=== PATIENT | female | born 1975 | race Caucasian/White ===

== ENCOUNTER → 2016-10-11 | Outpatient (CLI) | payer BC ==
[2016-10-11 13:31] LABS: CHLORIDE,CL 106 mmol/L (98-110); SODIUM,NA 138 mmol/L (136-146)
== END ==
LOC: MW.LAB 12:36
PROVIDERS: ATTEND Nurse Practitioner Family
DX: N95.1 Menopausal and female climacteric states (principal); E34.9 Endocrine disorder, unspecified; Z00.00 Encounter for general adult medical examination without abnormal findings
CPT/HCPCS: 36415; 80053; 80061; 82306; 82670; 83001; 84403; 84443; 85025

== ENCOUNTER → 2016-10-23 | Outpatient (CLI) | payer BC | LOC: MW.LAB 11:45 | PROVIDERS: ATTEND Nurse Practitioner Family | DX: E34.9 Endocrine disorder, unspecified (principal); R89.9 Unspecified abnormal finding in specimens from other organs, systems and tissues | CPT/HCPCS: 36415; 84439; 84443; 85025 ==

== ENCOUNTER → 2016-11-09 | Outpatient (CLI) | payer OTHER, BC ==
--- NOTE | 2016-11-09 14:56 | MR ---
EXAMINATION: MRI of the right shoulder HISTORY: Postprocedural state COMPARISON: 04/11/2016 TECHNIQUE: Multiplanar and multisequence images obtained of the right shoulder without contrast. FINDINGS: Postsurgical changes are noted within the humeral head secondary to previous rotator cuff repair. There is a type II acromion. There is a small amount of subdeltoid and subacromial fluid. Th ere is a full-thickness tear of the supraspinatus tendon at the footplate with mild retraction of th e anterior aspect of the tendon. The infraspinatus and teres minor tendons appear intact. The long h ead biceps tendon is present within the bicipital groove. The subscapularis tendon appears normal. T here is mild edema within the humeral head. No significant joint effusion. Inferior glenohumeral lig ament is intact. IMPRESSION: 1. Full-thickness tear of the supraspinatus tendon anteriorly at the footplate with mild retraction. 2. Postsurgical changes noted within the humeral head from previous rotator cuff fixation. 3. Mild bone marrow edema underlying the footplate. 4. Subacromial and subdeltoid fluid without a significant joint effusion.
== END ==
LOC: MW.MRI 09:16
PROVIDERS: ATTEND Orthopaedic Surgery
DX: Z98.890 Other specified postprocedural states (principal); M75.121 Complete rotator cuff tear or rupture of right shoulder, not specified as traumatic; R60.9 Edema, unspecified
CPT/HCPCS: 73221-26-RT; 73221-RT

== ENCOUNTER 2016-12-08 12:12 | Emergency (ER) | payer BC, OTHER ==
[2016-12-08] MEDS ORDERED: Albuterol/Ipratropium 3.0-0.5 MG/3 ML Neb Soln NEB ONE (12:16)
--- NOTE | 2016-12-08 12:21 | EDM.PDOC ---
ED HISTORY OF PRESENT ILLNESS - General Chief Complaint: Respiratory Problem Stated Complaint: CHEST HURTING Time Seen by Provider: 12/08/16 12:19 - History of Present Illness INITIAL COMMENTS - FREE TEXT/NARRATIVE: HISTORY AND PHYSICAL: History of present illness: Patient 41-year-old white female presents with concern of cough congestion and cold symptoms for 7-10 days she is a smoker she denies fever chills nausea vomiting chest pain or other concern Review of systems: As per history of present illness and below otherwise all systems reviewed and negative. Past medical history: As per history of present illness and as reviewed below otherwise noncontributory. Surgical history: As per history of present illness and as reviewed below otherwise noncontributory. Social history: No reported history of drug or alcohol abuse. Family history: As per history of present illness and as reviewed below otherwise noncontributory. Physical exam: HEENT: Atraumatic, normocephalic, pupils reactive, negative for conjunctival pallor or scleral icterus, mucous membranes moist, throat clear, neck supple, nontender, trachea midline. Lungs: Slightly diminished and coarse bilaterally , breath sounds equal bilaterally, chest nontender. Heart: S1S2, regular, negative for clicks, rubs, or JVD. Abdomen: Soft, nondistended, nontender. Negative for masses or hepatosplenomegaly. Negative for costovertebral tenderness. Pelvis: Stable nontender. Genitourinary: Deferred. Rectal: Deferred. Extremities: Atraumatic, negative for cords or calf pain. Neurovascular unremarkable. Neuro: Awake, alert, oriented. Cranial nerves II through XII unremarkable. Cerebellum unremarkable. Motor and sensory unremarkable throughout. Exam nonfocal. Diagnostics: CBC CMP influenza screen chest x-ray Therapeutics: Albuterol ipratropium nebulizer Impression: #1 pneumonitis Definitive disposition and diagnosis as appropriate pending reevaluation and review of above. 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: hysterectomy and breast reduction Musculoskeletal History: Reports: Other (see below) Other Musculoskeletal History: torn rotator cuff, bursitis Neurological History: Reports: None Psychiatric History: Reports: None Endocrine/Metabolic History: Reports: None Hematologic History: Reports: None Immunologic History: Reports: None Oncologic (Cancer) History: Reports: None Dermatologic History: Reports: Psoriasis - Past Surgical History Female Surgical History: Reports: Breast reduction, Hysterectomy, Oophorectomy Musculoskeletal Surgical History: Reports: Arthroscopic procedure, Other (see below) Other Musculoskeletal Surgeries/Procedures:: surgery on left shoulder x 4 - labral repair, cleaning scar tissue. RTC repair on right shoulder Social & Family History - Family History Family Medical History: Noncontributory - Tobacco Use Smoking Status *Q: Current Every Day Smoker Years of Tobacco use: 15 Packs/Tins Daily: 1 Used Tobacco, but Quit: No Second Hand Smoke Exposure: No - Caffeine Use Caffeine Use: Reports: Coffee - Alcohol Use Days Per Week of Alcohol Use: 0 - Recreational Drug Use Recreational Drug Use: No Drug Use in Last 12 Months: No ED ROS GENERAL - Review of Systems Review Of Systems: ROS reveals no pertinent complaints other than HPI. ED EXAM, GENERAL - Physical Exam Exam: See Below (See dictated) Course - Vital Signs Last Recorded V/S: Last Vital Signs Temp 36.6 C 12/08/16 12:19 Pulse 95 12/08/16 12:19 Resp 20 12/08/16 12:19 BP 115/70 12/08/16 12:19 Pulse Ox 97 12/08/16 12:19 - Orders/Labs/Meds Orders: Active Orders 24 hr Category Date Time Status RT Aerosol Therapy [RC] ASDIRECTED Care 12/08/16 12:16 Active Chest 2V [CR] Stat Exams 12/08/16 12:19 Taken Labs: Laboratory Tests 12/08/16 12/08/16 Range/Units 12:29 12:29 WBC 12.00 H (4.0-11.0) K/uL RBC 4.99 (4.30-5.90) M/uL Hgb 16.0 (12.0-16.0) g/dL Hct 47.3 H (36.0-46.0) % MCV 94.8 (80.0-98.0) fL MCH 32.1 H (27.0-32.0) pg MCHC 33.8 (31.0-37.0) g/dL RDW Std Deviation 47.0 (28.0-62.0) fl RDW Coeff of Jailyn 14 (11.0-15.0) % Plt Count 255 (150-400) K/uL MPV 10.00 (7.40-12.00) fL Neut % (Auto) 69.5 (48.0-80.0) % Lymph % (Auto) 19.4 (16.0-40.0) % Cavalier % (Auto) 9.3 (0.0-15.0) % Eos % (Auto) 1.5 (0.0-7.0) % Baso % (Auto) 0.3 (0.0-1.5) % Neut # (Auto) 8.3 H (1.4-5.7) K/uL Lymph # (Auto) 2.3 (0.6-2.4) K/uL Cavalier # (Auto) 1.1 H (0.0-0.8) K/uL Eos # (Auto) 0.2 (0.0-0.7) K/uL Baso # (Auto) 0.0 (0.0-0.1) K/uL Nucleated RBC % 0.0 /100WBC Nucleated RBCs # 0 K/uL Sodium 140 (136-146) mmol/L Potassium 4.3 (3.5-5.1) mmol/L Chloride 106 (98-110) mmol/L Carbon Dioxide 26 (21-31) mmol/L BUN 10 (6.0-23.0) mg/dL Creatinine 0.8 (0.6-1.5) mg/dL Est Cr Clr Drug Dosing 73.19 mL/min Estimated GFR (MDRD) > 60.0 ml/min Glucose 78 (60-110) mg/dL Calcium 9.1 (8.8-10.8) mg/dL Total Bilirubin 0.3 (0.1-1.5) mg/dL AST 20 (5-40) IU/L ALT 15 (8-54) IU/L Alkaline Phosphatase 73 (40-150) Total Protein 7.3 (6.0-8.0) g/dL Albumin 4.1 (3.5-5.0) g/dL Globulin 3.2 (2.0-3.5) g/dL Albumin/Globulin Ratio 1.3 (1.3-2.8) Meds: Medications Discontinued Medications Generic Name Dose Route Start Last Admin Trade Name Carly PRN Reason Stop Dose Admin Albuterol/Ipratropium 3 ml 12/08/16 12:16 12/08/16 12:23 Duoneb 3.0-0.5 Mg/3 Ml NEB 12/08/16 12:17 3 ml ONETIME ONE Administration Departure - Departure Time of Disposition: 13:18 Disposition: Home, Self-Care 01 Condition: good Clinical Impression: Pneumonitis Forms: ED Department Discharge Additional Instructions: The following information is given to patients seen in the emergency department who are being discharged to home. This information is to outline your options for follow-up care. We provide all patients seen in our emergency department with a follow-up referral. The need for follow-up, as well as the timing and circumstances, are variable depending upon the specifics of your emergency department visit. If you don't have a primary care physician on staff, we will provide you with a referral. We always advise you to contact your personal physician following an emergency department visit to inform them of the circumstance of the visit and for follow-up with them and/or the need for any referrals to a consulting specialist. The emergency department will also refer you to a specialist when appropriate. This referral assures that you have the opportunity for followup care with a specialist. All of these measure are taken in an effort to provide you with optimal care, which includes your followup. Under all circumstances we always encourage you to contact your private physician who remains a resource for coordinating your care. When calling for followup care, please make the office aware that this follow-up is from your recent emergency room visit. If for any reason you are refused follow-up, please contact the [facility] emergency department at and asked to speak to the emergency department charge nurse. azithromycin albuterol as prescribed stop smoking followup primary medical doctor one to 2 days return as needed discussed - My Orders Last 24 Hours: My Active Orders 12/08/16 12:16 RT Aerosol Therapy [RC] ASDIRECTED 12/08/16 12:19 Chest 2V [CR] Stat - Assessment/Plan Last 24 Hours: My Active Orders 12/08/16 12:16 RT Aerosol Therapy [RC] ASDIRECTED 12/08/16 12:19 Chest 2V [CR] Stat
[2016-12-08 12:51] LABS: CHLORIDE,CL 106 mmol/L (98-110); SODIUM,NA 140 mmol/L (136-146)
[2016-12-08 13:47] VITALS: BP 112/68
--- NOTE | 2016-12-09 18:13 | CR ---
EXAM DATE: 12/08/16 PATIENT'S AGE: 41 Patient: SHI MORALES Facility: [place], [place] Site . Site : [id number] Study: XRay Chest [id number]/29/2017 12:51:44 PM Ordering Physician: Daysi Zelaya Final Report: INDICATION: Cough x9 days. Technique: Two view chest. Comparison: Two-view chest 06/21/2016. Findings: The heart and mediastinum are normal in size and configuration. The pulmonary vessels are normal. The lungs are clear. No pleural fluid. Postoperative changes of the left shoulder. No acute bony abnormalities. Impression: Stable chest with no evidence of acute disease. Dictated by Reji Flanagan MD @ Dec 08 2016 1:04PM (Electronic Signature) Report Signed by Proxy. [facility]
== END 2016-12-08 13:30 | disposition home or self-care (01) ==
LOC: MW.ED 12:12
DX: J18.9 Pneumonia, unspecified organism (principal)
CPT/HCPCS: 36415; 71020; 71020-26; 80053; 85025; 87804; 94664; 99283; 99285

== ENCOUNTER 2017-08-14 06:41 | Day surgery (SDC) | payer OTHER, BC ==
[2017-08-14] MEDS: Lactated Ringers 1,000 ML IV SCH ×2 (07:15→07:46)
--- NOTE | 2017-08-14 07:19 | PCM.PREANE ---
Preanesthetic Assessment - Anesthesia/Transfusion/Family Hx Anesthesia History: Prior Anesthesia Reaction Other Type of Anesthesia Reaction Comment: "Have a hard time breathing and my heart wants to stop", perioperative hypn Transfusion History: No Prior Transfusion(s) - Review of Systems General: No Symptoms Pulmonary: No Symptoms Cardiovascular: No Symptoms Gastrointestinal: No Symptoms Neurological: No Symptoms Other: Reports: None - Physical Assessment NPO Status Date: 08/13/17 Height: 1.6 m Weight: 77.111 kg ASA Class: 2 Mental Status: Alert & Oriented x3 Airway Class: Mallampati = 2 Dentition: Reports: Normal Dentition Lungs: Clear to Auscultation, Normal Respiratory Effort Cardiovascular: Regular Rate, Regular Rhythm - Allergies Allergies/Adverse Reactions: Allergies Allergy/AdvReac Type Severity Reaction Status Date / Time morphine AdvReac Vomiting Verified 12/08/16 12:23 anesthesia Allergy Hypotension Uncoded 12/08/16 12:23 - Anesthesia Plan Pre-Op Medication Ordered: None - Acknowledgements Anesthesia Type Planned: General Anesthesia Pt an Appropriate Candidate for the Planned Anesthesia: Yes Alternatives and Risks of Anesthesia Discussed w Pt/Guardian: Yes Pt/Guardian Understands and Agrees with Anesthesia Plan: Yes Additional Comments: pt choses no interscalene block. 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 OB/BYN History: vaginal hysterectomy, breast reduction and laparoscopy with corona S&O Musculoskeletal History: Neurological History: Reports: Migraines Psychiatric History: Reports: None Endocrine/Metabolic History: Reports: None Hematologic History: Reports: None Immunologic History: Reports: None Oncologic (Cancer) History: Reports: None Dermatologic History: Reports: Psoriasis - Past Surgical History Head Surgeries/Procedures: Reports: None Female Surgical History: Reports: Breast Reduction, Hysterectomy, Salpingo- Oophorectomy Musculoskeletal Surgical History: Reports: Arthroscopic Procedure, Shoulder Surgery, Other (See Below) Other Musculoskeletal Surgeries/Procedures:: surgery on left shoulder x 4 - labral repair, cleaning scar tissue. RTC repair on right shoulder - SUBSTANCE USE Smoking Status *Q: Current Every Day Smoker Tobacco Use Within Last Twelve Months: Cigarettes Second Hand Smoke Exposure: No Days Per Week of Alcohol Use: 0 Recreational Drug Use History: No - HOME MEDS Home Medications: Home Meds Albuterol [Ventolin HFA] 1 - 2 puff INH ASDIRECTED PRN 08/08/17 [History] Cyclobenzaprine HCl 10 mg PO ASDIRECTED PRN 08/08/17 [History] Diclofenac Sodium [Voltaren] 75 mg PO BID 08/08/17 [History] Triamcinolone Acetonide [Triamcinolone Acetonide 0.1% Crm] 1 applic TOP ASDIRECTED PRN 08/08/17 [History] - CURRENT (IN HOUSE) MEDS Current Meds: Current Medications Hydrocodone Bitart/Acetaminophen ([place] 325-10 Mg) 1 - 2 tab PO Q4H PRN PRN Reason: Pain Cefazolin Sodium/Dextrose 1 gm (/ Premix) 50 mls @ 100 mls/hr IV ONCALL SHANNAN Lactated Ringer's (Ringers, Lactated) 1,000 mls @ 100 mls/hr IV ASDIRECTED SHANNAN Ketorolac Tromethamine (Toradol) 10 mg PO Q6H PRN PRN Reason: Pain Stop: 08/19/17 08:01
[2017-08-14] MEDS ORDERED: Midazolam 1 MG/ML 2 ML SDV ONE (07:24)
[2017-08-14] MEDS ORDERED: fentaNYL 250 MCG/5 ML SDV ONE (07:24)
[2017-08-14] MEDS ORDERED: Propofol 200 MG/20 ML SDV ONE ×2 (07:24→08:58)
[2017-08-14] MEDS ORDERED: Lidocaine 2% 5 ML SDV ONE (07:24)
[2017-08-14] MEDS ORDERED: Ondansetron 4 MG/2 ML SDV ONE ×2 (07:25→08:37)
[2017-08-14] MEDS ORDERED: Succinylcholine/Normal Saline 200 MG/10 ML Syringe ONE (07:25)
[2017-08-14] MEDS ORDERED: Ketorolac 30 MG/ML SDV ONE (07:25)
[2017-08-14] MEDS ORDERED: ePHEDrine 50 MG/ML SDV ONE (07:33)
[2017-08-14] MEDS ORDERED: Ketorolac 10 MG Tab PO PRN (08:00)
[2017-08-14] MEDS ORDERED: Acetaminophen/HYDROcodone 325-10 MG Tab PO PRN (08:00)
[2017-08-14] MEDS ORDERED: ceFAZolin 1 GM in Premix Bag 1 BAG IV SCH (08:00)
[2017-08-14] MEDS ORDERED: Scopolamine 1.5 MG Transdermal Patch ONE (08:32)
[2017-08-14] MEDS ORDERED: fentaNYL 100 MCG/2 ML SDV ONE (08:56)
[2017-08-14] MEDS ORDERED: Meperidine PF 25 MG/ML Syringe IVPUSH ONE ×3 (09:11→11:15)
--- NOTE | 2017-08-14 09:55 | PCM.OPNOTE ---
- General Post-Op/Procedure Note Date of Surgery/Procedure: 08/14/17 Operative Procedure(s): R shoulder scope with SAD, RTCR Post-Op Diagnosis: R shoulder impingement, RTC tear Anesthesia Technique: General ET Tube Primary Surgeon: Tamera Hensley [employer] Teacher: Shwetha Nash in mLs: 5 Condition: Good Free Text/Narrative:: #[id number]
--- NOTE | 2017-08-14 10:51 | OR ---
SURGEON: Tamera Hensley MD DATE OF PROCEDURE: 08/14/2017 PREOPERATIVE DIAGNOSES: 1. Right shoulder impingement syndrome. 2. Right shoulder rotator cuff tear, status post repair. POSTOPERATIVE DIAGNOSES: 1. Right shoulder impingement syndrome. 2. Right shoulder rotator cuff tear, status post repair. PROCEDURE: Right shoulder arthroscopy with, 1. Subacromial decompression. 2. Arthroscopic rotator cuff repair. CRUSHER SETTER: Shwetha Nash PA-C. ANESTHESIA: General. ESTIMATED BLOOD LOSS: 5 mL. TOURNIQUET TIME: 0 minutes. COMPLICATIONS: None. DVT PROPHYLAXIS: PAS boots to bilateral lower extremities. IMPLANTS USED: Arthrex 5.5 mm corkscrew anchor ([employer]) and one Arthrex 4.75 SwiveLock anchor ([employer]). BRIEF HISTORY: Annie is a 42-year-old female who has previously undergone a right shoulder arthroscopy with subacromial decompression and arthroscopic rotator cuff repair. She had done well initially following surgery; however, re-injured her shoulder after rolled over onto her while in bed. Since that time, she has had continued pain. She has failed conservative treatment. Due to her lack of response to conservative treatment, I did recommend surgical intervention. The risks and goals of procedure were discussed with the patient and were documented preoperatively. She agreed to proceed. DESCRIPTION OF PROCEDURE: The patient was properly identified and brought to the operating room. She was transferred from the OR cart and placed on the operating table in supine position. General anesthesia was administered. After adequate anesthesia was obtained, the patient was placed into a beach-chair position. Care was taken to pad all bony prominences. Her head was secured. The right upper extremity was then prepped in standard fashion using ChloraPrep solution. It was then sterilely draped. A time-out was performed to ensure correct site and procedure. Preoperative antibiotics were given. The surgical site had been marked preoperatively. A marker was used to identify the bony landmarks. Approximately 30 mL of normal saline was introduced into the glenohumeral joint. A posterior portal was then established. Blunt trocar and cannula were introduced into the glenohumeral joint. Camera, inflow, and outflow were assembled. The rotator interval showed mild synovitis. An anterior portal was established. The subscapularis was then visualized and probed. It was found to be intact. No loose bodies were within the subscapular recess. She had some minor degenerative fraying along the anterior labrum; however, it was intact. The biceps was visualized superiorly and its attachment to the glenoid labrum was also intact. Both the glenoid and humeral head showed no degenerative findings. The posterior labrum also appeared intact. I then entered the axillary pouch. No loose bodies were identified. The arm was then brought into an abducted and externally rotated position. The bare area was noted posteriorly. As I progressed forward, a small full- thickness tear was noted through the anterior portion of the supraspinatus. The instruments were then removed from the glenohumeral joint. I then entered the subacromial space. Mild bursitis was noted. A lateral portal was established and the bursal tissue was resected using a combination of electrocautery and the shaver. The undersurface of the acromion was also cleared. An acromioplasty then performed with the prior surgery and I did not feel that any further resection was needed today. Once the bursal tissue had been adequately cleared, the rotator cuff was visualized. The full-thickness tear through the anterior portion of the supraspinatus was then noted. Sutures were present. I did use an arthroscopic scissor to remove these. A bur was then used to roughen the bony surface just lateral to the articular margin. The sites of the previous anchors were noted. I did place one 5.5 mm corkscrew anchor central to the sites of the previous anchors just off the articular margin. This had good purchase within the bone. I elected to place one anchor only as there did not appear to be any other areas of bony surface that would have been adequate for the position of the anchor. The four sutures were then passed through the cuff tissue. The cuff tissue was quite robust and appeared to be of adequate quality. The sutures were then tied in a posterior-to- anterior fashion. I was able to get good reapproximation of the cuff tissue over the bony footplate. At the completion, I elected to place a SwiveLock anchor laterally for further compression of the cuff tissue. The sutures from the previously placed sutures were passed through the SwiveLock anchor and this was placed laterally. This provided good compression of the rotator cuff to the bony footprint. The suture ends were then trimmed. The repair was then probed. It was found to be adequately covering the bony footprint and appeared to be nearly watertight. Instruments were then removed from the shoulder. The portal sites were closed with 3-[address] an additional portal for passage of the suture laterally. Xeroform gauze was placed over the wound and a bulky dressing was applied. She was awakened from her anesthetic and transferred back to the operating room cart. She was brought to recovery room in stable condition. All needle and sponge counts were correct. ALFIE / CHAO /[id number]
--- NOTE | 2017-08-14 11:01 | PCM.POSTAN ---
POST ANESTHESIA ASSESSMENT - MENTAL STATUS Mental Status: Alert, Oriented - RESPIRATORY Respiratory Status: Respiratory Rate WNL, Airway Patent, O2 Saturation Stable - CARDIOVASCULAR CV Status: Pulse Rate WNL, Blood Pressure Stable - GASTROINTESTINAL GI Status: No Symptoms - PAIN Pain Score: 7 Free Text/Narrative:: refusing pain meds - POST OP HYDRATION Hydration Status: Adequate & Stable
[2017-08-14] MEDS ORDERED: Meperidine PF 50 MG/ML Syringe IVPUSH ONE ×2 (11:15→12:10)
--- NOTE | 2017-08-14 13:08 | PCM48HPAN ---
Post Anesthesia Note - EVALUATION WITHIN 48HRS OF ANESTHETIC Vital Signs in Normal Range: Yes Patient Participated in Evaluation: Yes Respiratory Function Stable: Yes Airway Patent: Yes Cardiovascular Function Stable: Yes Hydration Status Stable: Yes Pain Control Satisfactory: Yes Nausea and Vomiting Control Satisfactory: Yes Mental Status Recovered: Yes
[2017-08-14 15:36] VITALS: BP 101/52
== END 2017-08-14 12:58 | disposition home or self-care (01) ==
LOC: MW.SDS 06:41
PROVIDERS: ATTEND Orthopaedic Surgery
DX: S46.011A Strain of muscle(s) and tendon(s) of the rotator cuff of right shoulder, initial encounter (principal); M75.41 Impingement syndrome of right shoulder; Z79.899 Other long term (current) drug therapy; Z98.890 Other specified postprocedural states; W51.XXXA Accidental striking against or bumped into by another person, initial encounter
CPT/HCPCS: 29827; A9270; C1713; J0690; J1885; J2175; J2250; J2405; J3010; J7120; 01630; 88304; J2704